=== PATIENT | male | born 1980 | race Caucasian/White ===

== ENCOUNTER 2022-01-27 10:54 | Outpatient (REF) | payer OTHER, SELFPAY ==
--- NOTE | ~2022-01-27 | XR_ITS ---
EXAMINATION: CR X-RAY HAND AND WRIST LEFT CLINICAL INFORMATION: Left hand pain. COMPARISON: None TECHNIQUE: 3 views of the left hand were obtained. FINDINGS: No acute fracture or dislocation. The joint spaces are unremarkable. The carpal bones are normally aligned. The distal radius and ulna are intact. Partial visualization of radial orthopedic hardware appears intact. XR/XR hand wrist LT IMPRESSION: No significant left hand and wrist abnormality.
== END 2022-01-27 10:55 | disposition home or self-care (01) ==
LOC: HO.HMGCX 10:54
PROVIDERS: PCP Nurse Practitioner Family; Visit Provider Family Medicine
DX: M79.642 Pain in left hand (principal)
CPT/HCPCS: 73110; 73130